=== PATIENT | female | born 1970 | race Caucasian/White ===

== ENCOUNTER 2023-10-18 15:05 | Emergency (ER) | payer OTHER, SELFPAY ==
[2023-10-18 15:08] VITALS: BP 179/87
[2023-10-18 15:31] LABS: % Basophils 1.5 % (0-2); % Eosinophils 3.3 % (0-6); % Immature Granulocytes 0.6 % (0-0.5); % Lymphocytes 23.7 % (20.5-51.1); % Monocytes 8.1 % (1.7-9.3); % Neutrophils 62.8 % (42.2-75.2); Absolute Basophils 0.1 10^3/uL (0-0.2); Absolute Eosinophils 0.2 10^3/uL (0-0.7); Absolute Lymphocytes 1.3 10^3/uL (1.2-3.4); Absolute Monocytes 0.4 10^3/uL (0.1-0.6); Absolute Neutrophils 3.4 10^3/uL (1.4-6.5); Hematocrit 39.8 % (37.0-47.0); Hemoglobin 14.5 g/dL (12.0-16.0); Mean Corp Hgb Conc. 36.4 g/dL (33.0-37.0); Mean Corpuscular Hgb 30.1 pg (27.0-31.0); Mean Corpuscular Volume 82.7 fL (81.0-99.0); Mean Platelet Volume 9.1 fL (7.4-10.4); Nucleated Red Blood Cells % 0 %; Platelet Count 361 10^3/uL (130-400); Red Blood Cell Count 4.81 10^6/uL (4.20-5.40); Red Cell Dist. Width 11.8 % (11.5-14.5); White Blood Cell Count 5.4 10^3/uL (4.8-10.8)
[2023-10-18 15:42] LABS: ALT (SGPT) 68 U/L (0-35); AST (SGOT) 40 U/L (14-36); Albumin 4.4 g/dl (3.5-5.0); Alkaline Phosphatase 101 U/L (38-126); Blood Urea Nitrogen 14 mg/dl (7-17); Calcium 9.6 mg/dl (8.4-10.2); Carbon Dioxide 29 mmol/L (22-30); Chloride 104 mmol/L (98-107); Glucose 106 mg/dl (70-99); Potassium 3.6 mmol/L (3.5-5.1); Sodium 138 mmol/L (135-145); Total Bilirubin 0.5 mg/dl (0.2-1.3); Total Protein 7.3 g/dl (6.3-8.2); eGFR > 60.00
[2023-10-18 17:29] VITALS: BP 126/83
[2023-10-18 19:22] VITALS: BMI 31.1
[2023-10-18 19:23] VITALS: BP 118/85
--- NOTE | 2023-10-18 19:32 | ED.GENMED ---
History of Present Illness
<Sylvester Tompkins MD - Last Filed: 10/18/23 22:14>
General
Chief Complaint: Catheter/Tube Problem
Time Seen by Provider: 10/18/23 17:24
Travel History
Have you had any contact with someone who has COVID-19?: No
Do you have any symptoms of coronavirus? Fever > 100 degrees, chills, cough, shortness of breath, sore throat, loss of taste or smell, muscle aches, or headache?: No
<Sebastian Browning Jr., PA-C - Last Filed: 10/18/23 20:47>
General
Source: patient
Exam Limitations: none
Nursing documentation reviewed up to this point in time: agreed with
History of Present Illness
History of Present Illness:
53-year-old female past medical history of previous ovarian cancer with left-sided chest wall port in place 5 years ago but not used over the past few years most recently flushed 8 months ago presenting to the emergency department with concerns of a
pressure sensation to the left port. She discussed this with [facility] that previously manage this and advised to go to the ER for further assessment. She denies any fevers redness swelling warmth or additional concern
<Sebastian Browning Jr., PA-C - Last Filed: 10/18/23 20:47>
Review of Systems
Allergies reviewed?: Yes
All Other Systems: ROS reviewed and negative except as documented in HPI and ROS
<Sebastian Browning Jr., PA-C - Last Filed: 10/18/23 20:47>
Physical Exam
Physical Exam:
GENERAL: Alert , in no apparent distress
EYE: pupils equal and reactive
NECK: Supple, no significant adenopathy.
ENT: o/p clr, mmm.
CARDIAC: Left chest wall port no tenderness no redness or warmth no visible abnormalities regular rate and rhythm .
LUNGS: Clear breath sounds bilaterally, no acute respiratory distress, no wheezes/rales/rhonchi
ABDOMEN: Soft, without focal tenderness, no r/g, no cvat
NEUROLOGICAL: Alert and oriented, no focal neuro deficits
SKIN: Warm and dry, skin intact.
MUSCULOSKELETAL: No edema, well perfused.
PSYCH: Normal and appropriate interaction.
Course
<Sylvester Tompkins MD - Last Filed: 10/18/23 22:14>
Orders/Labs/Results
Orders:
Orders
10/18/23 15:22
CBC/With Diff [Complete Blood Count/With Diff] Urgent
CMP [Comprehensive Metabolic Panel] Urgent
Blood Culture Urgent
REANNA Source: Blood/Venous
Specimen Description:
10/18/23 17:44
Chest [CR Chest - 2 Views ] Urgent
Comment:
Reason For Exam: left chest port
10/18/23 18:46
US Arms, Left [US Periph Venous UPPER Ext LT] Urgent
Comment:
Reason For Exam: left chest port eval for thrombosis
Abnormal Lab Results
10/18/23
15:22
Immature Gran % 0.6 H %
(0-0.5)
Glucose 106 H mg/dl
(70-99)
AST 40 H U/L
(14-36)
ALT 68 H U/L
(0-35)
10/18/23 15:22
10/18/23 15:22
Vital Signs
Initial and Last Documented VS:
Initial Vital Signs
Temp Pulse Resp BP Pulse Ox
98.0 F 64 18 179/87 100
10/18/23 15:08 10/18/23 15:08 10/18/23 15:08 10/18/23 15:08 10/18/23 15:08
Last Documented Vital Signs
Temp Pulse Resp BP Pulse Ox
98.5 F 66 20 127/82 97
10/18/23 19:23 10/18/23 20:19 10/18/23 20:19 10/18/23 20:19 10/18/23 20:19
<Sebastian Browning Jr., JANE-Keon - Last Filed: 10/18/23 20:47>
Orders/Labs/Results
Orders:
Orders
10/18/23 15:22
CBC/With Diff [Complete Blood Count/With Diff] Urgent
CMP [Comprehensive Metabolic Panel] Urgent
Blood Culture Urgent
REANNA Source: Blood/Venous
Specimen Description:
10/18/23 17:44
Chest [CR Chest - 2 Views ] Urgent
Comment:
Reason For Exam: left chest port
10/18/23 18:46
US Arms, Left [US Periph Venous UPPER Ext LT] Urgent
Comment:
Reason For Exam: left chest port eval for thrombosis
Abnormal Lab Results
10/18/23
15:22
Immature Gran % 0.6 H %
(0-0.5)
Glucose 106 H mg/dl
(70-99)
AST 40 H U/L
(14-36)
ALT 68 H U/L
(0-35)
10/18/23 15:22
10/18/23 15:22
Vital Signs
Initial and Last Documented VS:
Initial Vital Signs
Temp Pulse Resp BP Pulse Ox
98.0 F 64 18 179/87 100
10/18/23 15:08 10/18/23 15:08 10/18/23 15:08 10/18/23 15:08 10/18/23 15:08
Last Documented Vital Signs
Temp Pulse Resp BP Pulse Ox
98.5 F 66 20 127/82 97
10/18/23 19:23 10/18/23 20:19 10/18/23 20:19 10/18/23 20:19 10/18/23 20:19
<Sebastian Browning Jr., PA-C - Last Filed: 10/18/23 20:47>
MDM/Problems Addressed
MDM/Problems Addressed:
53-year-old female presenting to the emergency department today with concerns of a subcutaneous port to the left chest wall with a pressure sensation over the past week. This was not used over the past few years and most recently flushed 8 months
ago. She was concerned of potential thrombosis to the area. Here examination is normal vital signs normal labs unremarkable ultrasound ordered for assessment. Ultrasound without evidence of thrombosis no emergent findings on examination chest
x-ray normal labs without emergent findings stable for outpatient follow-up advised to seejarad looney for further evaluation.
<Sebastian Browning Jr., PA-C - Last Filed: 10/18/23 20:47>
*Critical Care Note
Total Time (30-74mins, 75-104mins- exclusive of procedures): Not Applicable
ED Attending Note
<Sylvester Tompkins MD - Last Filed: 10/18/23 22:14>
ED Attending Note
Patient seen and examined by attending physician: Yes
ED Attending Note:
Patient presents to ED secondary to intermittent pressure around her anterior chest wall port over the past 1 week. Denies fever or chills. Denies shortness of breath. Denies trauma. Denies recent illness. Denies recent change in medications
diet. Patient states that her port is no longer being used, as she has been cured from breast cancer. Her port was last accessed 8 months ago when it was flushed. Denies previous history of similar symptoms. Patient was referred to ED by her
oncologist, to be evaluated for potential blood clot development.
Physical Exam
General: no apparent distress, not acutely ill. afebrile
Head: nc/at. eomi
Neck: supple. no meningeal signs.
Lungs: no acute respiratory distress. clear bilaterally
Abdomen: normal bowel sounds. not tender.
Neuro: alert and oriented. no focal neurological deficits
Skin: port noted over left anterior chest wall - nontender, without erythema/swelling/ecchymosis.
Psychiatric: well kept. interactive and cooperative
Extremities: no edema. no calf tenderness.
Chest x-ray and upper extremity ultrasound without any acute findings. Patient will be discharged home in stable condition with recommendation to follow-up with her oncologist at [place], to discuss potential removal of her port.
-
Portions of this chart may have been created with voice recognition software.� Occasional wrong word or��sound alike� substitutions may have occurred due to the inherent limitations of voice recognition software.
Discharge Plan
Departure
Patient Disposition: Home (Routine Discharge)
Date of Disposition: 10/18/23
Time of Disposition: 20:44
Patient with high blood pressure during this ER visit?: No
Condition: Good
Covid-19: Not Applicable
Discharge Problem:
Anterior chest wall pain
Instructions: How to Care for a Portacath
Prescriptions:
No Action
levothyroxine 125 mcg Tablet
125 mcg PO DAILY
Referrals:
Layla Almendarez PA-C [Family Provider] -
Activity Restrictions/Additional Instructions:
You came to the emergency department today with concerns of discomfort at the port site. No signs of thrombosis here please follow-up closely with Jarad Looney for further assessment. Return to the emergency department for any worsening, new or
concerning symptoms.
Interventions
Interventions:
*Risk Screen - Suicide Last Done: 10/18/23 15:08
*General Assessment Last Done: 10/18/23 15:08
*Neglect/Abuse Screening Last Done: 10/18/23 15:08
ED- Fall Risk Assessment Last Done: 10/18/23 19:23
*ED COVID-19 Vaccine History Last Done: 10/18/23 15:08
*Nursing Disposition Last Done: 10/18/23 20:59
KK-Sfqpcf-Jaxjwaqgdi Assessment Last Done: 10/18/23 19:23
ED-Female Genitourinary Assessment Last Done: 10/18/23 17:29
Discharge Date and Time
Discharge Date/Time: 10/18/23 21:00
[2023-10-18 20:19] VITALS: BP 127/82
== END 2023-10-18 21:00 | disposition home or self-care (01) ==
LOC: EMR 15:05
PROVIDERS: Emergency Medicine; EMERGENCY PHYSICIAN Emergency Medicine; FAMILY PHYSICIAN Physician Assistant
DX: R07.89 Other chest pain (principal); C50.919 Malignant neoplasm of unspecified site of unspecified female breast
CPT/HCPCS: 99285; 71046; 80053; 85025; 87040; 93971

== ENCOUNTER → 2024-02-07 10:31 | Outpatient (REF) | payer OTHER, SELFPAY | LOC: RAD 10:31 | PROVIDERS: ATTENDING PHYSICIAN Internal Medicine; FAMILY PHYSICIAN Physician Assistant | DX: C54.1 Malignant neoplasm of endometrium (principal) | CPT/HCPCS: 71260; 74178; Q9967 ==

== ENCOUNTER 2024-11-22 06:24 | Day surgery (SDC) | payer OTHER, SELFPAY | END 2024-11-22 11:21 | disposition home or self-care (01) | LOC: GI 06:24 | PROVIDERS: ATTENDING PHYSICIAN Internal Medicine | DX: D12.3 Benign neoplasm of transverse colon (principal); K57.30 Diverticulosis of large intestine without perforation or abscess without bleeding; K64.9 Unspecified hemorrhoids | CPT/HCPCS: 45380; 88305 ==